=== PATIENT | male | born 1970 ===

== ENCOUNTER 2023-04-28 06:40 | Day surgery (SDC) | payer OTHER ==
[2023-04-21 10:20] LABS: PH,URINE 5.5 (5.0-8.0); URINE APPEARANCE Clear; URINE BILIRRUBIN Negative (NEGATIVE); URINE BLOOD Trace; URINE COLOR Dark Yellow; URINE GLUCOSE Negative (NEGATIVE); URINE LEUKOCYTE Trace; URINE NITRATE Negative; URINE PROTEIN Trace (NEGATIVE)
[2023-04-21 10:21] LABS: URINE BACTERIA 16.3 uL (0.0-1933); URINE RBC 21.4 uL (0.0-20.8); URINE WBC 4.4 uL (0.0-23.2)
[2023-04-21 10:38] LABS: HEMATOCRIT 47.6 % (39.0-48.0); HEMOGLOBIN 15.5 g/dL (13-16.00); MEAN CELL VOLUME 72.4 fL (80.0-100.00); MEAN CORPUSCULAR HEMOGLOBIN 23.5 pg (27.00-32.0); MEAN CORPUSCULAR HGB CONC 32.5 g/dl (32.0-36.0); PLATELET COUNT 214 K/uL (150-450); RED BLOOD COUNT 6.57 M/uL (4.00-6.00); RED CELL DISTRIBUTION WIDTH 15.3 % (11.5-14.5)
[2023-04-21 11:19] LABS: CALCIUM 9.4 mg/dL (8.5-10.1); CREATININE SERUM 0.91 mg/dL (0.70-1.30); GFR 87.15; POTASSIUM 4.25 mEq/L (3.5-5.1)
[2023-04-21 11:20] LABS: INR 1.06; PARTIAL THROMBOPLASTIN TIME 28.9 SECONDS (22.0-34.0); PROTHROMBIN TIME 11.1 SECONDS (9.0-11.5)
[~2023-04-28] VITALS: Ht 172.7 cm; Wt 85.7 kg
[2023-04-28] MEDS ORDERED: CEFTRIAXONE SODIUM 2,000 MG VIAL ONE (08:34)
[2023-04-28] MEDS ORDERED: ENOXAPARIN SODIUM 40 MG/0.4 ML SYRINGE SUBCUTANEO ONE ×2 (08:35→11:00)
[2023-04-28] MEDS ORDERED: BUPIVACAINE HCL/PF 0.5% 30ML ML ONE (09:03)
[2023-04-28] MEDS ORDERED: LIDOCAINE HCL 1%/Epi 20ML VIAL IJ ONE (09:03)
[2023-04-28] MEDS ORDERED: METRONIDAZOLE/SODIUM CHLORIDE 500 MG/100 ML PIGGYBACK IV ONE ×2 (09:32→11:00)
[2023-04-28] MEDS ORDERED: CEFTRIAXONE SODIUM 2,000 MG VIAL IV ONE (11:00)
[2023-04-28] MEDS ORDERED: BUPIVACAINE HCL/PF 0.25% 30ML VIAL InF ONE (11:00)
[2023-04-28] MEDS ORDERED: COLACE100 MG PO (12:10)
[2023-04-28] MEDS ORDERED: NEURONTIN300 MG PO (12:10)
[2023-04-28] MEDS ORDERED: TRAM1TAB98 PO (12:10)
[2023-04-28] MEDS ORDERED: CELEBREX200MG PO (12:10)
== END 2023-04-28 15:10 | disposition home or self-care (01) ==
LOC: CIR.AMB 06:40 → EDBD 08:45 → CIR.AMB 09:15
PROVIDERS: ATTEND Surgery
DX: K42.9 Umbilical hernia without obstruction or gangrene (principal); Z20.822 Contact with and (suspected) exposure to COVID-19
CPT/HCPCS: 49594; C1781